=== PATIENT | female | born 1980 | race American Indian/Alaskan Native ===

== ENCOUNTER 2022-07-01 19:01 | Emergency (ER) | payer MEDICARE ==
[2022-07-02] MEDS ORDERED: traMADol 50 MG TAB PO ONE (05:56)
--- NOTE | 2022-07-02 07:06 | Emergency Department Report ---
ED Back Pain/Injury HPI - General Chief Complaint: Back Pain/Injury Stated Complaint: BACK AND KNEE PAIN AND NAUSEA Time Seen by Provider: 07/02/22 04:31 Source: patient Limitations: No Limitations - History of Present Illness Initial Comments: Is a 42-year-old female with history of chronic back pain and osteoarthritis. Who presents for bilateral low back pain rated at 5/10 patient denies new fall injury or trauma. There is no numbness tingling or paralysis. There is been no decrease or loss of bowel or bladder function. Patient does endorse urinary frequency however. Patient denies vaginal discharge. There is no fevers no chills no nausea vomiting MD Complaint: back pain - Related Data Previous Rx's Medication Instructions Recorded Last Taken Type Cyclobenzaprine [Flexeril] 10 mg PO TID PRN #30 tab 07/02/22 Unknown Rx Naproxen 500 mg PO BID PRN #30 tab 07/02/22 Unknown Rx cephALEXin [Keflex] 500 mg PO BID 7 Days #14 cap 07/02/22 Unknown Rx Allergies Allergy/AdvReac Type Severity Reaction Status Date / Time azithromycin AdvReac Shortness Verified 07/01/22 20:44 of Breath clindamycin AdvReac Shortness Verified 07/01/22 20:44 of Breath sulfamethoxazole AdvReac Shortness Verified 07/01/22 20:41 [From Bactrim] of Breath trimethoprim [From Bactrim] AdvReac Shortness Verified 07/01/22 20:41 of Breath ED Review of Systems ROS: Stated complaint: BACK AND KNEE PAIN AND NAUSEA Other details as noted in HPI Constitutional: denies: chills, fever Eyes: denies: eye pain, eye discharge, vision change ENT: denies: ear pain, throat pain Respiratory: denies: cough, shortness of breath, wheezing Cardiovascular: denies: chest pain, palpitations Endocrine: no symptoms reported Gastrointestinal: denies: abdominal pain, nausea, vomiting, diarrhea Genitourinary: dysuria, frequency. denies: urgency Musculoskeletal: back pain. denies: joint swelling, arthralgia Skin: denies: rash, lesions Neurological: denies: headache, weakness, paresthesias Psychiatric: denies: anxiety, depression Hematological/Lymphatic: denies: easy bleeding, easy bruising ED Past Medical Hx - Medications Home Medications: Home Medications Medication Instructions Recorded Confirmed Last Taken Type Cyclobenzaprine [Flexeril] 10 mg PO TID PRN #30 tab 07/02/22 Unknown Rx Naproxen 500 mg PO BID PRN #30 tab 07/02/22 Unknown Rx cephALEXin [Keflex] 500 mg PO BID 7 Days #14 cap 07/02/22 Unknown Rx ED Physical Exam - General Limitations: No Limitations General appearance: alert, in no apparent distress - Head Head exam: Present: atraumatic, normocephalic - Eye Eye exam: Present: normal appearance - ENT ENT exam: Present: normal exam - Neck Neck exam: Present: normal inspection, full ROM. Absent: tenderness - Respiratory Respiratory exam: Present: normal lung sounds bilaterally. Absent: respiratory distress, wheezes - Cardiovascular Cardiovascular Exam: Present: regular rate, normal rhythm, normal heart sounds. Absent: systolic murmur, diastolic murmur, rubs, gallop - GI/Abdominal GI/Abdominal exam: Present: soft, normal bowel sounds. Absent: distended, tenderness - Rectal Rectal exam: Present: deferred - Extremities Exam Extremities exam: Present: normal inspection, full ROM, normal capillary refill - Back Exam Back exam: Present: normal inspection, full ROM, paraspinal tenderness. Absent: CVA tenderness (R), CVA tenderness (L), muscle spasm, vertebral tenderness - Neurological Exam Neurological exam: Present: alert, oriented X3, CN II-XII intact, normal gait - Expanded Neurological Exam Expanded Patient oriented to: Present: person, place, time Speech: Present: fluid speech Motor strength exam: RUE: 5, LUE: 5, RLE: 5, LLE: 5 Best Eye Response ([place]): (4) open spontaneously Best Motor Response ([place]): (6) obeys commands Best Verbal Response ([place]): (5) oriented [place] Total: 15 - Psychiatric Psychiatric exam: Present: normal affect, normal mood - Skin Skin exam: Present: warm, dry, intact, normal color. Absent: rash ED Course Vital Signs 07/01/22 20:37 Temperature 98.8 F Pulse Rate 102 H Respiratory 16 Rate Blood Pressure 134/74 [Right] O2 Sat by Pulse 100 Oximetry ED Medical Decision Making - Medical Decision Making Plan treat for UTI, NSAIDs as needed pain follow-up primary care doctor in 2 to 3 days. Patient verbalized agreement and understanding of discharge plan. Critical care attestation.: If time is entered above; I have spent that time in minutes in the direct care of this critically ill patient, excluding procedure time. ED Disposition Clinical Impression: UTI (urinary tract infection) Qualifiers: Urinary tract infection type: acute cystitis Hematuria presence: without hematuria Qualified Code(s): N30.00 - Acute cystitis without hematuria Low back pain Qualifiers: Chronicity: acute Back pain laterality: right Sciatica presence: without sciatica Qualified Code(s): M54.50 - Low back pain, unspecified Disposition: HOME / SELF CARE / HOMELESS Is pt being admited?: No Does the pt Need Aspirin: No Condition: Stable Instructions: Urinary Tract Infection, Adult, [id number], Low Back Sprain or Strain Rehab-SportsMed Additional Instructions: Take medication as prescribed, moist heat therapy, back exercises, follow-up with your doctor in 2 to 3 days. Return to emergency department should symptoms worsen Prescriptions: Cyclobenzaprine [Flexeril] 10 mg PO TID PRN #30 tab PRN Reason: Muscle Spasm cephALEXin [Keflex] 500 mg PO BID 7 Days #14 cap Naproxen 500 mg PO BID PRN #30 tab PRN Reason: pain Referrals: TORIBIO ANDERSON MD [Staff Physician] - 3-5 Days Forms: Work/School Release Form(ED) Time of Disposition: 07:58
[2022-07-02 09:52] LABS: Color,Urine Yellow (Yellow)
[2022-07-02 09:53] LABS: Mucus,Urine 1+ /HPF
[2022-07-02 10:45] VITALS: BP 127/83
== END 2022-07-02 08:58 | disposition home or self-care (01) ==
LOC: ED 19:01
DX: N39.0 Urinary tract infection, site not specified (principal); M54.50 Low back pain, unspecified; Z91.09 Other allergy status, other than to drugs and biological substances
CPT/HCPCS: 81001; 87086; 99283